=== PATIENT | male | born 1975 | race Caucasian/White ===

== ENCOUNTER 2021-03-25 08:18 | Day surgery (SDC) | payer OTHER ==
[2021-03-25] MEDS ORDERED: LIDOCAINE HCL 2% 100 MG/5 ML IJ ONE (08:19)
[2021-03-25] MEDS ORDERED: Lactated Ringers 1,000 ML IV ONE (10:03)
[2021-03-25] MEDS ORDERED: DIPRIVAN 200 MG/20 ML IV ONE (10:13)
--- NOTE | 2021-03-25 11:05 | XRAY ---
Indication: Bilateral L4-S1 MBB. Intraoperative fluoroscopy provided for 14 seconds. Single digital spot image submitted for interpretation demonstrate posterior needle tips projecting over the expected left and right L4-S1 nerve roots. Correlate with intraoperative findings/report.
--- NOTE | 2021-03-25 11:18 | XRAY ---
14 seconds of fluoroscopy was used in surgery for a bilateral L4-S1 MBB.
== END 2021-03-25 10:43 | disposition home or self-care (01) ==
LOC: SDC-PAIN 08:18
PROVIDERS: ATTEND Psychiatry & Neurology Pain Medicine
DX: M47.816 Spondylosis without myelopathy or radiculopathy, lumbar region (principal); Z79.899 Other long term (current) drug therapy
CPT/HCPCS: 64493; 64494; 72020; 77002; J2704